=== PATIENT | female | born 1990 | race Caucasian/White ===

== ENCOUNTER 2021-12-04 16:04 | Inpatient (IN) ==
[2021-12-04] MEDS ORDERED: Famotidine 20 MG/2 ML VIAL IVP PRN (16:41)
[2021-12-04] MEDS ORDERED: Metoclopramide 10 MG/2 ML VIAL IVP PRN (16:41)
[2021-12-04] MEDS ORDERED: Naloxone 0.4 MG/ML INJ IVP PRN (16:41)
[2021-12-04] MEDS ORDERED: Ringers Solution, Lactated 1,000 ML IVC SCH (16:45)
[2021-12-04] MEDS ORDERED: Ondansetron 4 MG/2 ML VIAL ONE (18:52)
[2021-12-04] MEDS ORDERED: EPHEDrine 50 MG/ML VIAL ONE (18:52)
[2021-12-04] MEDS ORDERED: *HR* FentaNYL (PF) 100 MCG/2 ML VIAL ONE (18:52)
[2021-12-04] MEDS ORDERED: Ringers Solution, Lactated 0 ML ONE (18:52)
[2021-12-04] MEDS ORDERED: *HR* Morphine Sulfate/PF 10 MG/10 ML AMPUL ONE (18:52)
[2021-12-04 19:12] LABS: Basophils # 0.1 K/mcL (0.0-0.2); Basophils % 0.5 %; Eosinophils # 0.3 K/mcL (0.0-0.6); Eosinophils % 2.6 %; Hematocrit 34.6 % (35.3-44.9); Hemoglobin 10.9 g/dL (11.5-15.4); Lymphocytes # 2.8 K/mcL (0.6-4.6); Lymphocytes % 22.2 %; Mean Corpuscular HGB Conc 31.5 g/dL (31.6-35.5); Mean Corpuscular Hemoglobin 29.6 pg (28.0-33.3); Mean Platelet Volume 10.2 fL (9.4-12.4); Monocytes % 7.8 %; Neutrophils # 8.4 K/mcL (1.6-8.9); Platelet Count 268 K/mcL (140-400); Red Blood Count 3.68 M/mcL (3.82-4.97); Red Cell Distribution Width 13.8 % (11.5-14.5); Segmented Neutrophils % 65.9 %; White Blood Count 12.7 K/mcL (4.3-11.1)
[2021-12-04 19:25] LABS: Amphetamine Screen,Urine Negative ng/mL (Cutoff=1000); Barbiturate Screen,Urine Negative ng/mL (Cutoff=200); Benzodiazepines Screen,Urine Negative ng/mL (Cutoff=200); Cannabinoid Screen,Urine Negative ng/mL (Cutoff = 50); Cocaine Screen,Urine Negative ng/mL (Cutoff= 300); Opiate Screen,Urine Negative ng/mL (Cutoff=300); Phencyclidine Screen,Urine Negative ng/mL (Cutoff=25)
[2021-12-04 19:49] LABS: Influenza A PCR Negative (Negative); Influenza B PCR Negative (Negative); Resp. Syncytial Virus PCR Negative (Negative)
[2021-12-04] MEDS ORDERED: Ondansetron 4 MG/2 ML VIAL IVP PRN (19:55)
[2021-12-04] MEDS ORDERED: Promethazine 6.25 MG in Water for inj. (sterile) 20 ML IVPB PRN (19:55)
[2021-12-04] MEDS ORDERED: *HR* HYDROmorphone PF 0.5 MG/0.5 ML SYRINGE IVP PRN (19:55)
[2021-12-04 20:03] LABS: SARS-CoV-2 by PCR (In House) Positive (Negative)
== END 2021-12-05 04:23 | disposition home or self-care (01) | DRG 833 ==
LOC: 1NENULAB 16:04
PROVIDERS: ADMIT Student in an Organized Health Care Education/Training Program; ATTEND Student in an Organized Health Care Education/Training Program

== ENCOUNTER 2021-12-07 04:48 | Inpatient (IN) ==
[2021-12-07] MEDS ORDERED: Ringers Solution, Lactated 1,000 ML IVC ONE (04:55)
[2021-12-07] MEDS ORDERED: Naloxone 0.4 MG/ML INJ IVP PRN (04:55)
[2021-12-07] MEDS ORDERED: Famotidine 20 MG/2 ML VIAL IVP PRN (04:55)
[2021-12-07] MEDS ORDERED: Ondansetron 4 MG/2 ML VIAL IVP PRN ×2 (04:55→12:36)
[2021-12-07] MEDS ORDERED: Azithromycin 500 MG in 0.9 % Sodium Chloride 250 ML IVPB PRN (04:55)
[2021-12-07] MEDS ORDERED: Metoclopramide 10 MG/2 ML VIAL IVP PRN ×2 (04:55→12:36)
[2021-12-07] MEDS ORDERED: Ringers Solution, Lactated 1,000 ML IVC SCH ×2 (05:00→12:36)
[2021-12-07] MEDS ORDERED: *HR* HYDROmorphone PF 0.5 MG/0.5 ML SYRINGE IVP PRN (05:23)
[2021-12-07] MEDS ORDERED: *HR* Labetalol 20 MG/4 ML SYRINGE IVP PRN (05:23)
[2021-12-07] MEDS ORDERED: Promethazine 6.25 MG in Water for inj. (sterile) 20 ML IVPB PRN (05:23)
[2021-12-07 05:38] LABS: Basophils % 0.3 %; Eosinophils # 0.4 K/mcL (0.0-0.6); Hematocrit 32.8 % (35.3-44.9); Immature Granulocytes % 1.1 % (0-4); Lymphocytes % 25.8 %; Mean Corpuscular HGB Conc 33.5 g/dL (31.6-35.5); Mean Corpuscular Hemoglobin 30.6 pg (28.0-33.3); Mean Corpuscular Volume 91.1 fL (83.0-100.0); Mean Platelet Volume 10.2 fL (9.4-12.4); Monocytes # 0.9 K/mcL (0.0-1.3); Neutrophils # 7.1 K/mcL (1.6-8.9); Platelet Count 280 K/mcL (140-400); Red Cell Distribution Width 13.9 % (11.5-14.5); Segmented Neutrophils % 61.8 %; White Blood Count 11.5 K/mcL (4.3-11.1)
[2021-12-07 05:41] LABS: Amphetamine Screen,Urine Negative ng/mL (Cutoff=1000); Barbiturate Screen,Urine Negative ng/mL (Cutoff=200); Benzodiazepines Screen,Urine Negative ng/mL (Cutoff=200); Cannabinoid Screen,Urine Negative ng/mL (Cutoff = 50); Cocaine Screen,Urine Negative ng/mL (Cutoff= 300); Opiate Screen,Urine Negative ng/mL (Cutoff=300); Phencyclidine Screen,Urine Negative ng/mL (Cutoff=25)
[2021-12-07] MEDS ORDERED: EPHEDrine 50 MG/ML VIAL ONE (06:56)
[2021-12-07] MEDS ORDERED: *HR* Morphine Sulfate/PF 10 MG/10 ML AMPUL ONE (06:56)
[2021-12-07] MEDS ORDERED: *HR* Midazolam HCl 2 MG/2 ML VIAL ONE (06:56)
[2021-12-07] MEDS ORDERED: *HR* FentaNYL (PF) 100 MCG/2 ML VIAL ONE (06:56)
[2021-12-07] MEDS ORDERED: Acetaminophen IV 1,000 MG/100 ML BAG IVPB ONE (06:58)
[2021-12-07] MEDS ORDERED: *HR* Phenylephrine 10 MG/ML VIAL ONE (07:00)
[2021-12-07] MEDS ORDERED: Ringers Solution, Lactated 1,000 ML ONE (07:01)
[2021-12-07] MEDS ORDERED: CeFAZolin 2,000 MG/120 ML BAG IVPB ONE ×2 (07:38→07:40)
[2021-12-07] MEDS ORDERED: Oxytocin 20 units/ LR 1000 mL 20 UNIT/1,000 ML BAG IVC ONE (10:04)
[2021-12-07] MEDS ORDERED: Oxytocin 20 units/ LR 1000 mL 20 UNIT/1,000 ML BAG IVC SCH ×2 (10:15→12:36)
[2021-12-07] MEDS ORDERED: Simethicone 80 MG TAB.CHEW PO PRN (12:36)
[2021-12-07] MEDS ORDERED: Rho Immune Globulin 1,500 UNIT SYRINGE IM ONE (12:36)
[2021-12-07] MEDS ORDERED: *HR* OxyCODONE Immed Rel 5 MG TABLET PO PRN (12:36)
[2021-12-07] MEDS ORDERED: Prenatal Vit/FA 1 EACH TABLET PO SCH ×2 (12:36)
[2021-12-07] MEDS ORDERED: FERROUS SULFATE 27 MG PO SCH (12:36)
[2021-12-07] MEDS: Ibuprofen 600 MG TABLET PO SCH ×2 (12:45→20:32)
[2021-12-07] MEDS: Acetaminophen 325 MG TABLET PO SCH ×2 (14:40→20:33)
[2021-12-08] MEDS: Ibuprofen 600 MG TABLET PO SCH ×2 (04:18→08:44)
[2021-12-08] MEDS: Acetaminophen 325 MG TABLET PO SCH (04:18)
[2021-12-08 04:31] VITALS: PULSE 85
[2021-12-08 04:42] LABS: Basophils % 0.2 %; Eosinophils # 0.2 K/mcL (0.0-0.6); Eosinophils % 1.4 %; Hematocrit 28.6 % (35.3-44.9); Immature Granulocytes % 0.8 % (0-4); Lymphocytes # 2.5 K/mcL (0.6-4.6); Lymphocytes % 18.3 %; Mean Corpuscular HGB Conc 31.5 g/dL (31.6-35.5); Mean Corpuscular Hemoglobin 29.5 pg (28.0-33.3); Mean Corpuscular Volume 93.8 fL (83.0-100.0); Monocytes # 1.1 K/mcL (0.0-1.3); Monocytes % 8.4 %; Neutrophils # 9.5 K/mcL (1.6-8.9); Platelet Count 236 K/mcL (140-400); Red Blood Count 3.05 M/mcL (3.82-4.97); Segmented Neutrophils % 70.9 %; White Blood Count 13.4 K/mcL (4.3-11.1)
[2021-12-08 08:02] VITALS: BP 99/62; TEMP 97.9; O2SAT 98
== END 2021-12-08 12:50 | disposition home or self-care (01) | DRG 783 ==
LOC: 1NENULAB 04:48 → 1NENUOBS 12:38
PROVIDERS: ADMIT Student in an Organized Health Care Education/Training Program; ATTEND Student in an Organized Health Care Education/Training Program